=== PATIENT | male | born 1990 | race Two or more races ===

== ENCOUNTER 2017-12-30 01:37 | Emergency (ER) | payer SELFPAY ==
[~2017-12-30] VITALS: Ht 172.7 cm; Wt 54.4 kg
[2017-12-30 01:54] VITALS: BP 117/76
[2017-12-30] MEDS ORDERED: ONDANSETRON ODT 4 MG TAB PO ONE ×3 (02:00→02:15)
[2017-12-30 02:51] LABS: Urine Bacteria FEW /hpf (None Seen); Urine Blood Negative /uL (Negative); Urine Mucus FEW (None Seen); Urine Specific Gravity 1.035 (1.001-1.035); Urine WBC 2 /hpf (0 - 3)
[2017-12-30 02:55] LABS: Alcohol, Urine < 3.0 mg/dL (0-5); Amphetamine Screen, Urine NEGATIVE (NEGATIVE); Barbiturate Scree,Urine NEGATIVE (NEGATIVE); Benzodiazephine Screen, Urine NEGATIVE (NEGATIVE); Cannabinoid Screen, Urine POSITIVE (NEGATIVE); Cocaine Screen, Urine NEGATIVE (NEGATIVE); Opiate Scree,Urine NEGATIVE (NEGATIVE)
[2017-12-30 03:01] LABS: Phencyclidine Screen, Urine NEGATIVE (NEGATIVE)
== END 2017-12-30 03:04 | disposition home or self-care (01) ==
LOC: EDBD 01:37 → ER 01:37
DX: R11.2 Nausea with vomiting, unspecified (principal); F12.10 Cannabis abuse, uncomplicated
CPT/HCPCS: 80307; 81001; 99284; Q0162